=== PATIENT | male | born 1970 | race Caucasian/White ===

== ENCOUNTER → 2016-05-23 | Outpatient (CLI) | payer OTHER ==
[~2016-05-23] MED LIST: ASPIRIN81 MG PO; CIPRO PO; DIGOX0.25 MG PO; FLAGYL PO; FOLIC ACID PO; IBUPROFEN PO; LASIX PO; LEVAQUIN PO; LEVOTHYROXINE25 MCG PO; LIPITOR PO; LISINOPRIL5 MG PO; LOPRESSOR PO; LORTAB 10/500 T1 TAB PO; NICOTINE T1 PATCH .2 TOP; NO MEDICATIONS; PRILOSEC PO; VICODIN 5/500 T1 TAB PO; XARELTO20 MG PO
--- NOTE | ~2016-05-23 | EKG ---
PATIENT: LUIS SWANSON UNIT #: [id number] Ventricular Rate: 77 BPM Atrial Rate: 220 BPM QRS Duration: 98 ms Q-T Interval: 372 ms QTC Calculation(Bezet): 420 ms Calculated R [place]: 9 degrees Calculated T [place]: 7 degrees Diagnosis Line: Atrial fibrillation Diagnosis Line: RSR' or QR pattern in V1 suggests right Diagnosis Line: ventricular conduction delay Diagnosis Line: Abnormal ECG Diagnosis Line: When compared with ECG of 07-APR-2016 05:58, Diagnosis Line: No significant change was found Diagnosis Line: Confirmed by OSMEL GOULD MD ([id number]) on Diagnosis Line: 05/27/2016 2:08:12 PM INTERPRETING MD: HELENE
--- NOTE | ~2016-05-23 | EKG ---
PATIENT: LUIS SWANSON UNIT #: [id number] Ventricular Rate: 54 BPM Atrial Rate: 54 BPM P-R Interval: 180 ms QRS Duration: 104 ms Q-T Interval: 416 ms QTC Calculation(Bezet): 394 ms P [place]: 58 degrees Calculated R [place]: -2 degrees Calculated T [place]: 20 degrees Diagnosis Line: Sinus bradycardia Diagnosis Line: Minimal voltage criteria for LVH, may be normal Diagnosis Line: variant Diagnosis Line: Borderline ECG Diagnosis Line: Diagnosis Line: Confirmed by OSMEL GOULD MD ([id number]) on Diagnosis Line: 05/27/2016 2:08:21 PM INTERPRETING MD: HELENE
--- NOTE | ~2016-05-23 | OR ---
Unit #: [id number] #: [id number] Patient: LUIS SWANSON [id number] [address] [address] [id number] O MR#: [id number] NAME: LUIS SWANSON ROOM: Date of Procedure: 05/23/2016 Admission Date: 05/23/2016 Surgeon: Jesse Jaime M.D. : 1970 Attending Physician: Jesse Jaime M.D. Referring Physician: Jesse Jaime M.D. Primary Care Physician: Lizandro Johns M.D. OPERATIVE REPORT PROCEDURE PERFORMED Direct current shock cardioversion. INDICATIONS FOR PROCEDURE Atrial fibrillation. DESCRIPTION OF PROCEDURE The patient was brought to the cardiac catheterization lab, where telemetry was established. Pulse oximetry showed an oxygen saturation of 98%. Blood pressure was 130/83 mmHg. Rhythm strips revealed atrial fibrillation with a controlled ventricular response. The patient was given 4 mg of intravenous Versed and 100 mcg of intravenous fentanyl over a 5 minute duration. Following adequate sedation, DC shock cardioversion was performed using 250 joules per second of DC shock. Rhythm converted to normal sinus. No arrhythmias were noted and blood pressure response was normal and no complications were encountered. IMPRESSION Successful direct current shock cardioversion, atrial fibrillation converted to normal sinus. DISCHARGE MEDICINES Would include Xarelto 20 mg daily, metoprolol 50 mg t.i.d., Lipitor 10 mg daily, lisinopril dose is being increased to 10 mg nightly, aspirin 81 daily, levothyroxine 0.25 mcg daily, Digitalis is cut down to 0.125 mg daily, Lasix 40 mg daily. I will see the patient back in the office in 6 weeks. FINAL DIAGNOSIS 1. Atrial fibrillation converted to normal sinus rhythm. 2. Nonischemic cardiomyopathy. Dictated by... Marlene Sagastume/blanca TD: 05/23/2016 10:07 JOB #: [id number] Unit #: [id number] #: [id number] Patient: LUIS SWANSON OPERATIVE REPORT Page 1 of 1 X Jesse Jaime MD PROCEDURE OPERATIVE NOTE
[2016-05-23 07:13] LABS: HEMATOCRIT 49.7 % (38.0-50.0); HEMOGLOBIN 16.6 gm/dL (13.0-16.0); MEAN CELL VOLUME 83.8 FL (83-96); MEAN CORPUSCULAR HEMOGLOBIN 27.9 PG (28-34); MEAN CORPUSCULAR HGB CONC 33.3 g/dL (30-36); MEAN PLATELET VOLUME 8.2 FL (6.5-11.5); RED BLOOD COUNT 5.93 X10e (3.90-5.60); RED CELL DISTRIBUTION WIDTH 14.2 % (11.0-15.5); WHITE BLOOD COUNT 10.7 X10e3 (4.0-10.5)
[2016-05-23 07:31] LABS: INR 1.1; PARTIAL THROMBOPLASTIN TIME 35.3 SECONDS (23.5-31.3); PROTHROMBIN TIME (PATIENT) 11.5 SECONDS (9.6-11.5)
[2016-05-23 07:39] LABS: BUN/CREATININE RATIO 31.25; CALCIUM SERUM 9.3 mg/dL (8.4-10.2); CREATININE SERUM 0.8 mg/dL (0.6-1.4); GLOM FILT RATE Estimated 107.2 mL/min (>60); POTASSIUM 4.1 mmol/L (3.5-5.1)
== END | disposition home or self-care (01) ==
LOC: CCVL 06:42
PROVIDERS: Internal Medicine Cardiovascular Disease
DX: I48.91 Unspecified atrial fibrillation (principal); I42.8 Other cardiomyopathies; Z79.899 Other long term (current) drug therapy; Z79.01 Long term (current) use of anticoagulants; Z88.0 Allergy status to penicillin
CPT/HCPCS: 36415; 80048; 85027; 85610; 85730; 92960; 93005; J0461; J2250; J2310; J3010

== ENCOUNTER → 2016-07-16 | Outpatient (CLI) | payer OTHER ==
--- NOTE | ~2016-07-16 | CT55 ---
[facility] A Service of [facility] & [facility] RADIOLOGY TEXT RESULTS PATIENT: LUIS SWANSON LOCATION: [facility] : [birth year] UNIT #: [id number] AGE: [address]: Jerome Nickerson MD SEX: M ORDER DR: [id number] [facility] [address] [address] [id number] O MR#: [id number] Acc #: [id number] NAME: LUIS SWANSON : 1970 SEX: M STUDY DATE/TIME: 07/16/2016 8:12 UNIT: [facility] ROOM: STUDY DESCRIPTION: CT Chest W Con Attending Physician: Jerome Nickerson M.D. Referring Physician: Jerome Nickerson M.D. Ordering Physician: Jerome Nickerson M.D. Primary Care Physician: Primary Care Physician No MEDICAL IMAGING REPORT This report is preliminary unless electronic signature is present EXAM CT chest with contrast, 07/16/2016 HISTORY Mediastinal adenopathy. Follow-up abnormal CT chest from 04/06/2016. COMPARISON CTA chest PE protocol 04/06/2016. CT abdomen and pelvis without contrast 04/07/2016. PROCEDURE 5.0 mm axial images through the chest after intravenous contrast administration. Sagittal and coronal reformatted images were obtained. TECHNIQUE This CT exam was performed with one or more of the following radiation dose reduction techniques: automatic exposure control, adjustment of mA and/or kV according to patient size, and iterative reconstruction. FINDINGS Previously described mediastinal adenopathy appears smaller today. Previously described prevascular node measuring 3.3 x 1.4 cm on 04/06/2016 now measures 2.2 x 1.0 cm. Previously described subcarinal node measuring 3.2 x 2.3 cm now measures only 1.6 x 1.0 cm. The pretracheal node on previous examination measured 3.1 x 1.8 cm, but on today's examination appears to represent two separate adjacent nodes, which now measure only 2.2 x 0.7 cm. A right mid to upper paratracheal node previously measured 1.6 cm and now measures only 9.0 mm. There is some ill-defined stranding within the left axillary soft tissues, where some new mildly prominent left axillary lymph nodes are present, 1 of the dominant measuring 1.4 x 0.9 cm. Another incompletely imaged left axillary node measures approximately 2.3 x 1.1 cm. [facility]. [facility] A Service of [facility] & [facility] RADIOLOGY TEXT RESULTS PATIENT: LUIS SWANSON LOCATION: [facility] : [birth year] UNIT #: [id number] AGE: [address]: Jerome Nickerson MD SEX: M ORDER DR: No supraclavicular adenopathy is seen. There is no pericardial effusion or pleural effusion. Previously described right middle lobe atelectasis has re-expanded. No suspicious pulmonary nodules. Clear lungs. Previously described interstitial septal thickening has resolved. The included portions of the upper abdominal organs are within normal limits. No acute or suspicious osseous abnormalities are identified. IMPRESSION 1. Mediastinal adenopathy has significantly diminished in size since 04/06/2016, many of which now are not pathologically enlarged. Findings suggest benign reactive infectious inflammatory change on the previous study. 2. There is some new fat stranding within the left axilla with new mildly enlarged left axillary lymph nodes as described above. Findings are nonspecific. Benign infectious inflammatory etiology favored. Consider short-term physical examination followup. Followup CT chest may prove helpful to ensure resolution. 3. Previously described interstitial thickening in both lungs and a trace right pleural effusion have resolved, suggesting resolution of interstitial edema. 4. Not included in the body of the report, the questionable mild stranding surrounding the gallbladder has resolved. The gallbladder has an unremarkable CT appearance today. Dictated by... Lazara Villafana M.D. THIS IS AN ELECTRONICALLY VERIFIED REPORT Lazara Villafana M.D. at 07/19/2016 8:30 AM Cherrie TD: 07/16/2016 09:31 JOB #: [id number] MEDICAL IMAGING REPORT Page 1 of 1 COPY
== END | disposition home or self-care (01) ==
LOC: CCAT 07:19
DX: D58.2 Other hemoglobinopathies (principal); R59.0 Localized enlarged lymph nodes; J98.59 Other diseases of mediastinum, not elsewhere classified
CPT/HCPCS: 71260; Q9967